=== PATIENT | male | born 1950 | race Caucasian/White ===

== ENCOUNTER 2018-06-06 11:20 | Emergency (ER) | payer OTHER, MEDICARE ==
[~2018-06-06] VITALS: Ht 167.6 cm; Wt 81.7 kg
[~2018-06-06 11:20] MED LIST: ACETAMINOPHEN500 M1 PO; AMLODIPINE BESYL5 MG PO; AMOX TR-K CLV1 EAC3 PO; AMOXICILLIN 50500 MG PO; ASPIRIN EC81 M1 PO; CENTRUM SILVER1 EAC4 PO; CHOLESTYRAMINE PO; CIPROFLOXACIN500 M1 PO; COLACE100 MG PO; COUMADIN 1MG TAB1 M1 PO; COUMADIN 3 MG TA3 MG PO; COUMADIN 4 MG TA4 M1 PO; COUMADIN 5 MG TA5 M1 PO; DEXAMETHASONE 44 M1 PO; ENOXAPARIN80 MG/0.1 SUBQ; FISH OIL 1,001000 M1 PO; FLAGYL500 MG PO; HYDROCODON-ACE1 EAC7 PO; LIPITOR40 MG PO; LISINOPRIL40 MG PO; MECLIZINE HCL25 M1 PO; NEURONTIN 300300 M1 PO; NORCO 5-325 TA1 EACH PO; PREVALITE PACKET4 GM PO; PRILOSEC 20 MG20 MG PO; PRILOSEC40 MG PO; SENOKOT-S1 TA1 PO; TOPROL XL100 MG PO; TOPROL XL50 MG PO
[2018-06-06] MEDS ORDERED: COUMADIN 3 MG TA3 M1 PO (12:29)
[2018-06-06] MEDS ORDERED: SYNTHROID112 MC1 PO (12:30)
[2018-06-06 12:46] LABS: ABSOLUTE NEUTROPHILS 8.7 thou/uL (1.4-8.2); BASOPHILS 0.9 % (0.0-2.0); EOSINOPHILS 3.7 % (0.0-3.0); HEMATOCRIT 44.1 % (42.0-52.0); HEMOGLOBIN 15.2 gm/dL (14.0-18.0); LYMPHOCYTES 3.9 % (24.0-44.0); MCH 29.7 pg (26.0-34.0); MCHC 34.4 g/dL (28.0-37.0); MCV 86.2 fL (80.0-100.0); MONOCYTES 5.6 % (1.0-8.0); PLATELET COUNT 155 thou/uL (150-400); POLYS 85.9 % (36.0-66.0); RBC 5.11 mil/uL (4.50-6.00); RDW 14.4 % (10.5-14.5); WBC 10.1 thou/uL (4.0-11.0)
[2018-06-06 12:46] LABS: URINE BILIRUBIN NEGATIVE (Negative); URINE BLOOD TRACE (Negative); URINE CLARITY CLEAR; URINE COLOR YELLOW; URINE GLUCOSE-RANDOM* NEGATIVE (Negative); URINE KETONES NEGATIVE (Negative); URINE LEUKOCYTES-REFLEX NEGATIVE (Negative); URINE NITRITE-REFLEX NEGATIVE (Negative); URINE PROTEIN (DIPSTICK) NEGATIVE (Negative); URINE UROBILINOGEN 0.2 E.U./dl (0.2-1.0)
[2018-06-06 12:48] LABS: CALCIUM 9.9 mg/dL (8.5-10.1); CREATININE 1.1 mg/dL (0.7-1.3); POTASSIUM 4.6 mmol/L (3.5-5.1)
[2018-06-06 12:55] LABS: ALBUMIN 3.8 g/dL (3.4-5.0); TOTAL BILIRUBIN 1.7 mg/dL (<0.1-1.0); TOTAL PROTEIN 7.4 g/dL (6.4-8.2)
[2018-06-06] MEDS ORDERED: FLAGYL500 MG PO (14:39)
[2018-06-06] MEDS ORDERED: CIPROFLOXACIN500 M1 PO (14:39)
[2018-06-06 14:43] VITALS: BP 111/68
== END 2018-06-06 14:50 | disposition home or self-care (01) ==
LOC: ER 11:20
PROVIDERS: Emergency Medicine
DX: K57.32 Diverticulitis of large intestine without perforation or abscess without bleeding (principal); I25.10 Atherosclerotic heart disease of native coronary artery without angina pectoris; I10 Essential (primary) hypertension; Z85.118 Personal history of other malignant neoplasm of bronchus and lung

== ENCOUNTER → 2019-01-19 | Outpatient (CLI) | payer OTHER, MEDICARE ==
[~2019-01-19] MED LIST changes: +COUMADIN 3 MG TA3 M1 PO; +SYNTHROID112 MC1 PO
== END ==
LOC: CAT 08:24 → RAD 08:24
DX: J98.4 Other disorders of lung (principal); I51.7 Cardiomegaly; I25.10 Atherosclerotic heart disease of native coronary artery without angina pectoris; M47.814 Spondylosis without myelopathy or radiculopathy, thoracic region; Z85.118 Personal history of other malignant neoplasm of bronchus and lung

== ENCOUNTER 2019-03-06 02:55 | Inpatient (IN) | payer OTHER, MEDICARE ==
[~2019-03-06] VITALS: Ht 167.6 cm; Wt 83.5 kg
[2019-03-06 03:01] VITALS: BP 151/70
[2019-03-06 03:34] LABS: ABSOLUTE NEUTROPHILS 6.7 thou/uL (1.4-8.2); BASOPHILS 0.6 % (0.0-2.0); EOSINOPHILS 7.3 % (0.0-3.0); HEMATOCRIT 44.1 % (42.0-52.0); HEMOGLOBIN 14.9 gm/dL (14.0-18.0); LYMPHOCYTES 3.8 % (24.0-44.0); MCH 30.2 pg (26.0-34.0); MCHC 33.7 g/dL (28.0-37.0); MCV 89.6 fL (80.0-100.0); MONOCYTES 5.5 % (1.0-8.0); PLATELET COUNT 144 thou/uL (150-400); POLYS 82.8 % (36.0-66.0); RBC 4.93 mil/uL (4.50-6.00); RDW 14.4 % (10.5-14.5); WBC 8.1 thou/uL (4.0-11.0)
[2019-03-06 03:40] LABS: ANION GAP 6 mmol/L (7-16); BUN 15 mg/dL (7-18); CHLORIDE 104 mmol/L (98-107); CO2 29 mmol/L (21-32); CREATININE 1.3 mg/dL (0.7-1.3); GLUCOSE 114 mg/dL (74-106); POTASSIUM 4.5 mmol/L (3.5-5.1); SODIUM 139 mmol/L (136-145)
[2019-03-06 03:43] LABS: INR 2.5; PROTIME 25.7 Seconds (9.3-11.4)
[2019-03-06 03:50] LABS: MAGNESIUM 1.7 mg/dL (1.8-2.4); SGOT 28 U/L (15-37); SGPT 35 U/L (30-65); TOTAL BILIRUBIN 1.6 mg/dL (<0.1-1.0); TOTAL PROTEIN 7.4 g/dL (6.4-8.2); TROPONIN-I <0.06 ng/mL (<0.06)
[2019-03-06 06:52] VITALS: BP 145/77
[2019-03-06 11:21] VITALS: BP 115/60
[2019-03-06 14:58] VITALS: BP 111/62
[2019-03-06 15:11] VITALS: BP 125/65
[2019-03-06 19:10] VITALS: BP 111/60
--- NOTE | 2019-03-06 19:55 | NUR ---
ASSUMED PATIENT CARE AT 0700. A/O X4. SOB WITH EXERTION. DENOES PAIN. UP AD MELISSA. SLOWLY TOWARDS POC GOALS.
[2019-03-07 03:59] VITALS: BP 104/56
--- NOTE | 2019-03-07 04:49 | NUR ---
FOLLOWING POC WITH IVPB. VSS FOR PT AND OXYGEN SATURATION ON RA IS 94%. PT WAS ASKING FOR HIS GABAPENTIN. CALLED [facility] AND LOOKED AT MED REC AND RESTARTED IT FOR PT. REDRESSED IV SITE, HOURLY ROUNDING. CALL LIGHT WITHIN REACH.
[2019-03-07 05:33] LABS: CREATININE 0.9 mg/dL (0.7-1.3); POTASSIUM 4.4 mmol/L (3.5-5.1)
[2019-03-07 07:46] VITALS: BP 127/74
--- NOTE | 2019-03-07 08:10 | EKG ---
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 : 1950 Requested By: Yrn Fernandes Order Number: [id number] MD: Augusto Lorenzana Measurements Intervals [place] Rate: 72 P: 94 MD: 169 QRS: 102 QRSD: 119 T: 9 QT: 408 QTc: 447 Interpretive Statements Sinus rhythm Nonspecific intraventricular conduction delay Inferior infarct, old Poor R wave progression Compared to ECG 05/31/2014 01:52:44 No significant change was found Electronically Signed On 03-07-2019 8:10:03 CDT by Augusto Lorenzana [email or web address] ��������������������������������������������� <ELECTRONICALLY SIGNED> ���������������������������������������� By: Augusto Lorenzana MD, [facility] ��������������������������������������������� 03/07/1910 Augusto Lorenzana MD, [facility] /EPI
[2019-03-07 11:35] VITALS: BP 129/66
--- NOTE | 2019-03-07 15:19 | NUR ---
INITIAL ASSESSMENT: SW reviewed chart and spoke with nursing and attending physician. Pt was admitted from home due to CAP/hypoxemia. Pt is progressing towards goals for discharge. Discharge to home is anticipated in 1-2 days. SW met with pt at bedside. Introduced role of SW. Pt is alert/orientated x 4. Pt reports he lives at home with his . PRior to admission, pt was independent with ADLs. No use of DME. Pt's PCP is Dr. Ralph Padgett. No hx of services or SNF/Rehab placement. Pt denies having any discharge needs. SW is following to assist as needed with discharge planning.
[2019-03-07 15:52] VITALS: BP 116/57
--- NOTE | 2019-03-07 16:18 | HC ---
[facility] [place] [address] [place] [address] CONSULTATION Name: VLADISLAV VALDES Room #: 353-P ADM IN M.R.#: [id number] Admission: 03/06/19 ������������������ Attend Phys: Abdiaziz Nunez MD Discharge: ������������������ Date of : 46 Report #: [id number] THIS REPORT FOR: //name// CC: Devon Vega MD DATE OF SERVICE: 03/06/2019 PULMONARY CONSULTATION. PRIMARY CARE PHYSICIAN: Dr. Ralph Padgett. REFERRAL PHYSICIAN: Dr. Florez. REASON FOR REFERRAL: Dyspnea. HISTORY OF PRESENT ILLNESS: The patient, who is a 68-year-old white male who presents to the ED with progressive dyspnea. A Pulmonary consultation was requested. The patient is followed in the pulmonary office. He sees Dr. Marcelino Vega. He was diagnosed with apparent metastatic lung cancer in 2012. He was found to have a loculated pleural effusion along with underlying lung cancer. He was felt to be stage 4. He underwent thoracotomy. He was then referred to [facility] and receiving chemotherapy. He did not receive any chemotherapy according to the patient. He apparently was doing fairly well until January of this year when he started to develop dyspnea with cough. He was seen by Dr. Vega in the office. He was given steroids and antibiotics. With these medications for about 10 days, his symptoms improved. He has been seen longitudinally by Dr. Dorman also. He was felt to have COPD. The patient has smoked for many years, quit 19 years ago. He smoked about a pack and a half a day. He states he is normally on Stiolto, albuterol. He was in his usual state of health until 3-4 days prior to presentation, he started to develop mild increase in dyspnea and nonproductive cough. His dyspnea got progressively worse yesterday where he presented to the Emergency Room. Chest x-ray shows mild interstitial infiltrates in the left lower lung field with volume loss, mildly elevated left hemidiaphragm, mild interstitial changes seen in the right lower lobe. A CT chest was performed on 01/2019 showing mild [facility] [address] [place] [address] CONSULTATION Name: LUCIOVLADISLAV BARRIENTOS Room #: 353-P [facility] IN ..#: [id number] Admission: 03/06/19 ������������������ Attend Phys: Abdiaziz Nunez MD Discharge: ������������������ Date of : 46 Report #: [id number] fibrotic changes involving the right middle lobe, volume loss in the left lower lobe with mild fibrosis in the left lower lobe with very minimal pleural thickening on the left lung field. Bronchiectasis is also noted in the left lung field, was felt to be mild. Otherwise, the patient denies any recent febrile illness, sore throat, productive cough, night sweats or chills. His most recent spirometry performed in 01/2019 showed FEV1 of 1.66 liters, 64% predicted, FVC measuring 2.26 liters, 69% predicted, FEV1/FVC ratio 74%. In the past, there has been mild reduction in lung volumes along with moderate reduction in diffusion capacity. The patient notes that he has been traveling over the past 1-1/2 weeks. They went to the [place]. The was sick for about a week when the patient also started to develop his respiratory symptoms a few days ago. PAST MEDICAL HISTORY: As mentioned above including coronary artery disease, undergoing coronary artery bypass x 2 with cardiomyopathy, peripheral artery disease involving carotid arteries, COPD, remote history of tobacco use, history of diverticulitis, dyslipidemia, gastroesophageal reflux disease, status post mitral valve replacement, on chronic anticoagulation. He has a [employer] mechanical mitral prosthesis. Echocardiogram from 2015 showed ejection fraction 45%; thyroid cancer, status post thyroid ablation therapy. ALLERGIES: No known allergies. HOME MEDICATIONS: Include amlodipine 5 mg once a day, Zestril 40 mg once a day, aspirin 81 mg once a day, Lipitor 40 mg once a day, metoprolol 50 mg once a day, Neurontin 600 mg p.o. b.i.d. and 900 mg p.o. every day, Coumadin 3 mg once a day, Synthroid 112 mcg once a day. The patient is also on Stiolto 1 puff once a day along with albuterol MDI p.r.n. FAMILY HISTORY: Notable for myocardial disease and myocardial infarction in the father. Sister has coronary artery disease. Mother of brain tumor. SOCIAL HISTORY: He is , has smoked about 1-1/2 packs a day for 30+ years, quit 19 years ago. Denies any alcohol use. 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 REVIEW OF SYSTEMS: As mentioned above, otherwise 10-point system review negative. PHYSICAL EXAMINATION: GENERAL: He is awake, alert, in no apparent distress. VITAL SIGNS: Temperature is 98 degrees Fahrenheit, pulse is 67, respiratory [facility] [address] [place] [address] CONSULTATION Name: VLADISLAV VALDES Room #: 353-P ADM IN Rosa#: [id number] Admission: 03/06/19 ������������������ Attend Phys: Abdiaziz Nunez MD Discharge: ������������������ Date of : 46 Report #: [id number] rate 24, blood pressure 115/60 mmHg, saturation 93%. HEENT: Normocephalic, atraumatic. NECK: Supple, without lymphadenopathy or thyromegaly. CHEST: Breath sounds are moderate with mild expiratory wheezes, more so on the left than the right. CARDIOVASCULAR: Normal S1, S2. There are no murmurs. I do not hear obvious metallic prosthetic valve click. ABDOMEN: Soft, nontender, no organomegaly or masses felt. GENITOURINARY: Deferred. RECTAL: Deferred. EXTREMITIES: No edema, cyanosis or clubbing. LABORATORY DATA: Chest x-ray as mentioned above showing mild interstitial infiltrates in the left lower lung field, also in the right lower lung field. Volume loss is noted in the left. Review of the CT as mentioned above. Electrolytes are normal except for creatinine of 1.3. WBC 8100, hemoglobin is normal, platelets are mildly reduced. IMPRESSION: 1. Progressive dyspnea and cough in this 68-year-old white male, likely related to exacerbation of underlying chronic obstructive pulmonary disease. Chest x-ray shows mild abnormalities, although this may be chronic, cannot rule out lower respiratory tract infection. 2. Volume loss, mild interstitial changes, left lung field, history of lung cancer, CT chest suggests pulmonary fibrosis and mild bronchiectasis. 3. History of non-small cell lung cancer, felt to be metastatic including the chest wall with loculated pleural effusion, status post thoracotomy, status post chemotherapy in . He was told that he had stage IV lung cancer, although he has done very well since then. No obvious lung masses are noted in recent chest CT from 01/2019. 4. Remote history of tobacco use. 5. Coronary artery disease, status post coronary artery bypass surgery x 2. 6. Mitral valve replacement, mechanical prosthesis, on chronic anticoagulation. 7. Hypothyroidism. 8. Neuropathy, on Neurontin. 9. Renal insufficiency, appears to be acute kidney injury with a previously normal creatinine of 1.0. RECOMMENDATION: Would recommend bronchodilators, corticosteroids along with broad spectrum antibiotics. Would complete approximately 5-7 day course of antibiotics. DVT and GI prophylaxes is recommended. Note, the patient has been on Coumadin. [facility] [address] [facility] [place] [address] CONSULTATION Name: VLADISLAV VALDES Room #: 353-P [facility] IN [facility]#: [id number] Admission: 03/06/19 ������������������ Attend Phys: Abdiaziz Nunez MD Discharge: ������������������ Date of : 46 Report #: [id number] Thank you for this consultation. ��������������������������������������������� <ELECTRONICALLY SIGNED> ���������������������������������������� By: Antelmo Mcclelland MD ��������������������������������������������� 03/07/19 1618 [id number] Antelmo Mcclelland MD /nt
--- NOTE | 2019-03-07 18:22 | NUR ---
ASSUMED PATIENT CARE AT 0700. A/O X4. AMBULATED IN HALLWAY. NO SOB NOTED. PROGRESSING TOWARDS POC GOALS.
[2019-03-07 19:47] VITALS: BP 120/75
[2019-03-08 04:37] VITALS: BP 127/79
[2019-03-08 05:34] LABS: CALCIUM 9.2 mg/dL (8.5-10.1); CREATININE 1.1 mg/dL (0.7-1.3); HEMATOCRIT 38.6 % (42.0-52.0); HEMOGLOBIN 13.2 gm/dL (14.0-18.0); MCH 30.4 pg (26.0-34.0); MCHC 34.1 g/dL (28.0-37.0); MCV 89.1 fL (80.0-100.0); POTASSIUM 4.4 mmol/L (3.5-5.1); RBC 4.34 mil/uL (4.50-6.00); RDW 14.9 % (10.5-14.5); WBC 13.1 thou/uL (4.0-11.0)
[2019-03-08 07:22] VITALS: BP 114/68
[2019-03-08 11:33] VITALS: BP 117/65
[2019-03-08] MEDS ORDERED: IPRAT-ALBUT 0.5-3 ML INH (12:36)
[2019-03-08] MEDS ORDERED: CEFDINIR300 MG PO (12:36)
[2019-03-08] MEDS ORDERED: PREDNISONE 10 M10 MG PO (12:37)
[2019-03-08] MEDS ORDERED: MUCINEX600 MG PO (12:37)
[2019-03-08 13:01] VITALS: BP 117/65
--- NOTE | 2019-03-08 13:18 | NUR ---
DISCHARGE PLAN. PATIENT DISCHARGING TO HOME TODAY. NEBULIZER FOR HOME USE ORDERED PER ATTENDING. CLINICAL INFORMATION AND NEBULIZER RX FAXED TO [facility]. CALL PLACED TO [employer] TO NOTIFY. [employer] TO FACILITATE. UNIT SW AWARE. FOLLOWING.
--- NOTE | 2019-03-08 15:18 | NUR ---
DISCHARGE NOTE: SW reviewed chart and spoke with nursing and attending physician. Pt is medically stable for discharge home today. Pt will need a home nebulizer. SW met with pt and at bedside. Options for DME companies provided. No preference voiced. senior program planner sent referral to [employer]. Nebulizer to be delivered to pt's home later today. Pt's to provide transportation home. Pt will follow up with Dr. Sharona Franks at the [facility] clinic. No further SW needs identified at this time, but is available to assist should needs arise.
--- NOTE | 2019-03-08 15:27 | NUR ---
CARE OF PT ASSUMED THIS AM @ ~0700. PT NOTED TO BE UP AD MELISSA ON ROOM AIR. PT DENIES SOA, NO N/V/D AND NO PAIN TODAY. PT W/ A GOOD APPETITE FOR FOOD AND FLUID TODAY. PT STATES HE IS BREATHING MUCH BETTER THAN WHEN HE WAS ADMITTED, STATES THAT CM STATED A SERVICE W/ DELIVER HIS NEBULIZER LATER TODAY. PT'S AT . PT STATES HE IS VERY HAPPY AND READY TO GO HOME TODAY. DISCHARGE INSTRUCTION PACKET AND SCRIPTS W/ SCRIPT EDUCATION GONE OVER W/ PT. PT AND HIS HAVE GATHERED ALL BELONGINGS FOR DISCHARGE. TELE DC'D. IV ACCESS DC'D.
--- NOTE | 2019-03-09 13:39 | NUR ---
RO faxed discharge summary to pt's PCP's office for review per pt's request. RO faxed to the [facility] to Dr. Sharona Franks. [facility] No additional SW needs identified at this time, but is available to assist should needs arise.
== END 2019-03-08 15:42 | disposition home or self-care (01) | DRG 193 ==
LOC: ER 02:55 → EROBS 03:46 → 3W 03:46 → ENTRNSPT 03-08 15:23 → EDTRNSPTSTS 03-08 15:26 → 3W 03-08 15:42
PROVIDERS: Emergency Medicine; Nurse Practitioner Family; ADMIT Hospitalist
DX: J18.9 Pneumonia, unspecified organism (principal); J96.01 Acute respiratory failure with hypoxia; J44.1 Chronic obstructive pulmonary disease with (acute) exacerbation; I42.9 Cardiomyopathy, unspecified; J44.0 Chronic obstructive pulmonary disease with (acute) lower respiratory infection; I25.10 Atherosclerotic heart disease of native coronary artery without angina pectoris; I10 Essential (primary) hypertension; K57.90 Diverticulosis of intestine, part unspecified, without perforation or abscess without bleeding; I73.9 Peripheral vascular disease, unspecified; E78.5 Hyperlipidemia, unspecified; K21.9 Gastro-esophageal reflux disease without esophagitis; G62.9 Polyneuropathy, unspecified; Y95 Nosocomial condition; E03.9 Hypothyroidism, unspecified; Z87.01 Personal history of pneumonia (recurrent); Z85.118 Personal history of other malignant neoplasm of bronchus and lung; Z92.21 Personal history of antineoplastic chemotherapy; Z79.2 Long term (current) use of antibiotics; Z79.01 Long term (current) use of anticoagulants; Z79.82 Long term (current) use of aspirin; Z79.899 Other long term (current) drug therapy; Z87.891 Personal history of nicotine dependence; Z95.1 Presence of aortocoronary bypass graft; Z95.2 Presence of prosthetic heart valve; Z85.850 Personal history of malignant neoplasm of thyroid; Z82.49 Family history of ischemic heart disease and other diseases of the circulatory system
CPT/HCPCS: 10879

== ENCOUNTER → 2019-09-26 | Outpatient (CLI) | payer OTHER, MEDICARE ==
[~2019-09-26] MED LIST changes: +CEFDINIR300 MG PO; +IPRAT-ALBUT 0.5-3 ML INH; +MUCINEX600 MG PO; +PREDNISONE 10 M10 MG PO
== END ==
LOC: RAD 10:12
DX: J18.1 Lobar pneumonia, unspecified organism (principal); J98.4 Other disorders of lung; R91.8 Other nonspecific abnormal finding of lung field; J44.9 Chronic obstructive pulmonary disease, unspecified; Z95.4 Presence of other heart-valve replacement

== ENCOUNTER → 2019-10-10 | Outpatient (CLI) | payer OTHER, MEDICARE | LOC: RAD 07:50 | DX: J44.9 Chronic obstructive pulmonary disease, unspecified (principal); R91.8 Other nonspecific abnormal finding of lung field ==

== ENCOUNTER → 2020-01-23 | Outpatient (CLI) | payer OTHER, MEDICARE | LOC: SJCVCIMAG 09:14 | PROVIDERS: ATTEND Internal Medicine | DX: I65.23 Occlusion and stenosis of bilateral carotid arteries (principal); R94.31 Abnormal electrocardiogram [ECG] [EKG]; R00.1 Bradycardia, unspecified; I25.10 Atherosclerotic heart disease of native coronary artery without angina pectoris; I11.0 Hypertensive heart disease with heart failure; I50.22 Chronic systolic (congestive) heart failure; C34.92 Malignant neoplasm of unspecified part of left bronchus or lung; E78.5 Hyperlipidemia, unspecified; Z95.2 Presence of prosthetic heart valve; Z79.899 Other long term (current) drug therapy; Z87.891 Personal history of nicotine dependence ==

== ENCOUNTER → 2020-07-19 | Outpatient (CLI) | payer OTHER, MEDICARE | LOC: SJCVCIMAG 09:16 | PROVIDERS: ATTEND Internal Medicine | DX: I35.8 Other nonrheumatic aortic valve disorders (principal); R94.31 Abnormal electrocardiogram [ECG] [EKG]; R00.1 Bradycardia, unspecified; I45.2 Bifascicular block; I25.10 Atherosclerotic heart disease of native coronary artery without angina pectoris; I25.5 Ischemic cardiomyopathy; I11.0 Hypertensive heart disease with heart failure; I50.22 Chronic systolic (congestive) heart failure; E78.5 Hyperlipidemia, unspecified; I65.23 Occlusion and stenosis of bilateral carotid arteries; Z95.2 Presence of prosthetic heart valve; C34.92 Malignant neoplasm of unspecified part of left bronchus or lung; J44.9 Chronic obstructive pulmonary disease, unspecified; Z95.1 Presence of aortocoronary bypass graft; Z79.82 Long term (current) use of aspirin; Z79.899 Other long term (current) drug therapy; Z87.891 Personal history of nicotine dependence ==

== ENCOUNTER → 2021-01-24 | Outpatient (CLI) | payer OTHER, MEDICARE | LOC: SJCVCIMAG 08:18 | PROVIDERS: ATTEND Internal Medicine | DX: I65.23 Occlusion and stenosis of bilateral carotid arteries (principal); E04.1 Nontoxic single thyroid nodule; R94.31 Abnormal electrocardiogram [ECG] [EKG]; I44.0 Atrioventricular block, first degree; R00.1 Bradycardia, unspecified; I25.10 Atherosclerotic heart disease of native coronary artery without angina pectoris; I25.5 Ischemic cardiomyopathy; I11.0 Hypertensive heart disease with heart failure; I50.22 Chronic systolic (congestive) heart failure; E78.5 Hyperlipidemia, unspecified; C34.92 Malignant neoplasm of unspecified part of left bronchus or lung; J44.9 Chronic obstructive pulmonary disease, unspecified; I42.9 Cardiomyopathy, unspecified; K21.9 Gastro-esophageal reflux disease without esophagitis; Z95.1 Presence of aortocoronary bypass graft; Z95.2 Presence of prosthetic heart valve; Z79.01 Long term (current) use of anticoagulants; Z79.82 Long term (current) use of aspirin; Z79.899 Other long term (current) drug therapy; Z87.891 Personal history of nicotine dependence; Z82.49 Family history of ischemic heart disease and other diseases of the circulatory system ==

== ENCOUNTER → 2021-03-06 | Outpatient (CLI) | payer OTHER, MEDICARE | LOC: RAD 09:43 | PROVIDERS: ATTEND Internal Medicine | DX: J44.9 Chronic obstructive pulmonary disease, unspecified (principal); Z95.2 Presence of prosthetic heart valve ==

== ENCOUNTER → 2021-04-11 | Outpatient (CLI) | payer OTHER, MEDICARE | LOC: SJCVCIMAG 11:51 | PROVIDERS: ATTEND Internal Medicine | DX: M79.605 Pain in left leg (principal); R22.42 Localized swelling, mass and lump, left lower limb; I42.9 Cardiomyopathy, unspecified; I11.0 Hypertensive heart disease with heart failure; I50.9 Heart failure, unspecified; E78.5 Hyperlipidemia, unspecified; I25.10 Atherosclerotic heart disease of native coronary artery without angina pectoris; K21.9 Gastro-esophageal reflux disease without esophagitis; J44.9 Chronic obstructive pulmonary disease, unspecified; Z95.4 Presence of other heart-valve replacement; Z79.01 Long term (current) use of anticoagulants; Z79.82 Long term (current) use of aspirin; Z79.899 Other long term (current) drug therapy; Z87.891 Personal history of nicotine dependence ==

== ENCOUNTER → 2021-07-24 | Outpatient (CLI) | payer OTHER, MEDICARE | LOC: SJCVCIMAG 07:12 | PROVIDERS: ATTEND Internal Medicine | DX: R94.31 Abnormal electrocardiogram [ECG] [EKG] (principal); I35.8 Other nonrheumatic aortic valve disorders; I25.10 Atherosclerotic heart disease of native coronary artery without angina pectoris; I25.5 Ischemic cardiomyopathy; I11.0 Hypertensive heart disease with heart failure; I50.32 Chronic diastolic (congestive) heart failure; E78.5 Hyperlipidemia, unspecified; I65.23 Occlusion and stenosis of bilateral carotid arteries; C34.92 Malignant neoplasm of unspecified part of left bronchus or lung; E04.2 Nontoxic multinodular goiter; J44.9 Chronic obstructive pulmonary disease, unspecified; K21.9 Gastro-esophageal reflux disease without esophagitis; Z95.2 Presence of prosthetic heart valve; Z87.891 Personal history of nicotine dependence; Z79.82 Long term (current) use of aspirin; Z79.899 Other long term (current) drug therapy; Z79.01 Long term (current) use of anticoagulants; Z95.1 Presence of aortocoronary bypass graft; Z82.49 Family history of ischemic heart disease and other diseases of the circulatory system; Z51.81 Encounter for therapeutic drug level monitoring ==